=== PATIENT | male | born 1960 | race Caucasian/White ===

== ENCOUNTER → 2019-11-25 16:46 | Outpatient (BNVA) | payer SELFPAY | PROVIDERS: Family Provider Family Medicine; PCP Family Medicine; Visit Provider Family Medicine | DX: I25.10 Atherosclerotic heart disease of native coronary artery without angina pectoris (principal); I10 Essential (primary) hypertension; J44.1 Chronic obstructive pulmonary disease with (acute) exacerbation; Z87.891 Personal history of nicotine dependence; Z78.9 Other specified health status | CPT/HCPCS: 80053; 80061 ==

== ENCOUNTER 2020-03-18 18:50 | Emergency (ER) | payer SELFPAY ==
[2020-03-18 18:56] VITALS: BP 122/73; PULSE 72; RESP 16; TEMP 36.7; O2SAT 95; BMI 35.5
--- NOTE | 2020-03-18 18:56 | XR_ITS ---
WS: [id number] Portable AP upright chest, 03/18/2020 Clinical Data: cp Comparison: Portable chest, 11/15/2018. Findings: No nodules, masses or effusions are seen. The heart is normal. The pulmonary vascularity is not increased. No pneumonia or pneumothorax is seen. Calcified granulomas in both abigail. XR/XR chest 1V portable [id number] Impression: Old granulomatous disease.
--- NOTE | 2020-03-18 18:56 | ECG_ITS ---
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 Measurements Intervals [place] Rate: 73 P: 70 W[place]: 189 QRS: -74 QRSD: 104 T: 78 QT: 360 QTc: 398 Interpretive Statements SINUS RHYTHM LEFT ANTERIOR FASCICULAR BLOCK [QRS AXIS <= -45, QR IN I, RS IN II] WARNING: DATA QUALITY MAY AFFECT INTERPRETATION Compared to ECG 11/15/2018 20:17:41 No significant changes Electronically Signed On 03-20-2020 19:13:05 SIGNAL TOWER OPERATOR by Noé Aguilar M.D. [id number]
[2020-03-18 19:13] VITALS: BP 96/55; PULSE 74; RESP 16; O2SAT 96
[2020-03-18 19:35] LABS: Basophils % 0.5 %; Eosinophils # 0.4 10^3/uL (0.0-0.8); Eosinophils % 5.4 %; Hematocrit 43.9 % (42.0-52.0); Hemoglobin 14.5 g/dL (11.7-16.6); Lymphocytes # 1.4 10^3/uL (0.8-4.8); Mean Corpuscular Hemoglobin 30.2 pg (28.0-34.0); Mean Corpuscular Volume 91.5 fL (80-94); Mean Platelet Volume 9.1 fL (7.4-10.4); Monocytes # 0.9 10^3/uL (0.2-0.9); Monocytes % 10.8 %; Neutrophils % 64.9 %; Nucleated Red Blood Cells % 0 %; Platelet Count 292 10^3/cmm (130-400); Red Cell Distribution Width 12.3 % (12.1-15.1)
[2020-03-18 19:36] VITALS: BP 109/61; PULSE 75; RESP 18; O2SAT 97
[2020-03-18 19:51] LABS: Alanine Aminotransferase 15 U/L (0-41); Albumin Level 4.1 g/dL (3.5-5.2); Alkaline Phosphatase 69 IU/L (40-130); Anion Gap 13.3 (5-19); Aspartate Amino Transferase 11 U/L (0-40); Blood Urea Nitrogen 11 mg/dL (8-23); Calcium 8.6 mg/dL (8.5-10.5); Carbon Dioxide 26 mmol/L (22-29); Chloride 99 mmol/L (98-107); Globulin 2.5 g/dL (1.3-4.6); Glomerular Filtration Rate 98.3 mL/min (90-130); Glucose 103 mg/dL (65-115); Osmolality Calculated 278 mOsm/kg (285-295); Potassium 4.3 mmol/L (3.5-5.1); Sodium 134 mmol/L (136-145); Total Bilirubin 0.2 mg/dL (0.15-1.2); Total Protein 6.6 g/dL (6.6-8.7)
[2020-03-18 19:53] LABS: Troponin(5th) Baseline 8 ng/L (0-15)
--- NOTE | 2020-03-18 19:53 | W.ED.CHESTPA ---
HPI - Chest Pain General: Chief Complaint: Chest Pain Stated Complaint: CHEST PAIN/POSS BLOCKAGE Time Seen by Provider: 03/18/20 19:23 Source: patient Mode of arrival: ambulatory Limitations: no limitations History of Present Illness: HPI narrative: 59-year-old male states he been having left-sided chest pain that started roughly 3 hours ago. He states that it is a pain in the left chest is a sharp dull pain. Denies any radiation. Denies any nausea or shortness of breath. Patient denies any worsening or improving factors. He has an extensive cardiac history and had multiple stents in the past. States pain is currently a 2 out of 10. MD complaint: chest pain Associated symptoms: Deny abdominal pain, dyspnea, fever(s), nausea or vomiting Review of Systems Const: Denies: fever(s), chills, body aches or change in appetite Eyes: Denies: blurry vision or eye discomfort ENMT: Denies: throat pain or dental pain Card: Reports: chest pain Resp: Denies: dyspnea GI: Denies: abdominal pain, nausea, vomiting or diarrhea : Denies: dysuria Musc: Denies: neck pain or back pain Skin/Breast: Denies: rash Neuro: Denies: headache(s) Psych: Denies: depression Everette/Lymph: Denies: easy bruising All/Imm: Denies: urticaria PFSH ED PFSH: Medical History (Updated 03/18/20 @ 21:47 by Js Hdez MD) CAD (coronary atherosclerotic disease) COPD (chronic obstructive pulmonary disease) GERD (gastroesophageal reflux disease) Hypertension Surgical History H/O angioplasty Social History Smoking and tobacco status: former smoker Quit status (tobacco): has quit using tobacco Year quit tobacco: 2009 Second hand smoke exposure: No Alcohol intake: current Alcohol intake frequency: holidays/special occasions only Desire information about substance/drug rehabilitation?: No Current occupational status: employed History of recent travel: No Current gender identity: Male Physical Exam Const: COMMON NORMALS: no acute distress, patient oriented x3 and healthy appearing HENMT: COMMON NORMALS: normocephalic and atraumatic HEAD & SCALP: normocephalic and atraumatic Eye: COMMON NORMALS: Equal, round and reactive pupils present and EOMs intact bilaterally PUPIL: Yes Equal, round and reactive pupils present Neck/C-Spine: COMMON NORMALS: full ROM and supple Chest: COMMONS NORMALS: normal inspection of the chest and normal palpation of entire chest wall Resp: COMMON NORMALS: normal respiratory effort, No retractions, No use of accessory muscles and clear to auscultation bilaterally AUSCULTATION: clear to auscultation bilaterally Cardio: COMMON NORMALS: regular rate, regular rhythm and No murmurs present (Cardio) RATE: regular rate RHYTHM: regular rhythm GI: COMMON NORMALS: Normal to inspection, nondistended, normoactive bowel sounds present, Soft to palpation, non-tender and no masses PALPATION: Yes Soft to palpation Extremity: COMMON NORMALS: normal to inspection and full ROM Neuro: COMMON NORMALS: patient oriented x3, moves all extremities and no focal motor deficits Psych: COMMON NORMALS: mental status grossly normal, Normal thought process present and cooperative THOUGHT PROCESS: Normal thought process present Skin: COMMON NORMALS: no rashes or lesions noted and no wounds GENERAL SKIN EXAM: no rashes or lesions noted Course Vital Signs: Vital signs: Vital Signs Temperature 98.0 F 03/18/20 18:56 Pulse Rate 75 03/18/20 19:36 Respiratory Rate 16 03/18/20 20:02 Blood Pressure 109/61 03/18/20 19:36 Pulse Oximetry 97 03/18/20 19:36 MDM - Chest Pain MDM Narrative: Medical decision making narrative: Matt presents here with chest pain is atypical in nature. Its been resolved here is initial repeat troponin are negative. Patient is stable for discharge and no signs of acute coronary syndrome. He has no signs of pulmonary [place] or aortic dissection. He is to follow-up his maternal fetal physician in 2 to 4 days return to the ER if worsening. He understands and agrees to the plan. Lab Data: Labs: Lab Results 03/18/20 03/18/20 03/18/20 Range/Units 19:25 19:25 19:25 WBC 8.0 (4.0-10.0) 10^3/ uL RBC 4.80 (4.1-5.3) 10^6/u L Hgb 14.5 (11.7-16.6) g/dL Hct 43.9 (42.0-52.0) % MCV 91.5 (80-94) fL MCH 30.2 (28.0-34.0) pg MCHC 33.0 (30.0-36.0) g/dL RDW 12.3 (12.1-15.1) % Plt Count 292 (130-400) 10^3/c mm MPV 9.1 (7.4-10.4) fL Neut % (Auto) 64.9 % Lymph % (Auto) 18.0 % [place] % (Auto) 10.8 % Eos % (Auto) 5.4 % Baso % (Auto) 0.5 % Neut # (Auto) 5.20 (1.8-7.7) 10^3/u L Lymph # (Auto) 1.4 (0.8-4.8) 10^3/u L [place] # (Auto) 0.9 (0.2-0.9) 10^3/u L Eos # (Auto) 0.4 (0.0-0.8) 10^3/u L Baso # (Auto) 0.0 (0.0-0.1) 10^3/u L Nucleated RBC % (a uto) 0 % Nucleated RBCs # 0.0 /100WBC Sodium 134 L (136-145) mmol/L Potassium 4.3 (3.5-5.1) mmol/L Chloride 99 (98-107) mmol/L Carbon Dioxide 26 (22-29) mmol/L Anion Gap 13.3 (5-19) BUN 11 (8-23) mg/dL Creatinine 0.8 (0.7-1.2) mg/dL GFR Calculation 98.3 (90-130) mL/min Glucose 103 (65-115) mg/dL Calculated Osmolal ity 278 L (285-295) mOsm/k g Calcium 8.6 (8.5-10.5) mg/dL Total Bilirubin 0.2 (0.15-1.2) mg/dL AST 11 (0-40) U/L ALT 15 (0-41) U/L Alkaline Phosphata se 69 (40-130) IU/L Troponin T Baselin e 8 (0-15) ng/L Troponin T 120 Min [place] (0-15) ng/L Total Protein 6.6 (6.6-8.7) g/dL Albumin 4.1 (3.5-5.2) g/dL Globulin 2.5 (1.3-4.6) g/dL 03/18/20 Range/Units 21:20 WBC (4.0-10.0) 10^3/ uL RBC (4.1-5.3) 10^6/u L Hgb (11.7-16.6) g/dL Hct (42.0-52.0) % MCV (80-94) fL MCH (28.0-34.0) pg MCHC (30.0-36.0) g/dL RDW (12.1-15.1) % Plt Count (130-400) 10^3/c mm MPV (7.4-10.4) fL Neut % (Auto) % Lymph % (Auto) % [place] % (Auto) % Eos % (Auto) % Baso % (Auto) % Neut # (Auto) (1.8-7.7) 10^3/u L Lymph # (Auto) (0.8-4.8) 10^3/u L [place] # (Auto) (0.2-0.9) 10^3/u L Eos # (Auto) (0.0-0.8) 10^3/u L Baso # (Auto) (0.0-0.1) 10^3/u L Nucleated RBC % (a uto) % Nucleated RBCs # /100WBC Sodium (136-145) mmol/L Potassium (3.5-5.1) mmol/L Chloride (98-107) mmol/L Carbon Dioxide (22-29) mmol/L Anion Gap (5-19) BUN (8-23) mg/dL Creatinine (0.7-1.2) mg/dL GFR Calculation (90-130) mL/min Glucose (65-115) mg/dL Calculated Osmolal ity (285-295) mOsm/k g Calcium (8.5-10.5) mg/dL Total Bilirubin (0.15-1.2) mg/dL AST (0-40) U/L ALT (0-41) U/L Alkaline Phosphata se (40-130) IU/L Troponin T Baselin e (0-15) ng/L Troponin T 120 Min [place] 7.57 (0-15) ng/L Total Protein (6.6-8.7) g/dL Albumin (3.5-5.2) g/dL Globulin (1.3-4.6) g/dL Imaging Data^: CXR: Attestation: I personally reviewed and interpreted this imaging study as follows: My impression: no acute abnormality EKG Data^: EKG 1: Attestation: I personally reviewed and interpreted this EKG as follows: EKG interpretation date: 03/18/20 EKG interpretation time: 18:54 Interpretation: nsr hr [address] or t wave abnormalities qrs 104 qtc 386 EKG 2: Attestation: I personally reviewed and interpreted this EKG as follows: EKG interpretation date: 03/18/20 EKG interpretation time: 21:06 Interpretation: nsr hr [address] or t wave abnormalities qrs 112 qtc 378 Discharge Plan Discharge Patient Disposition: Home Clinical Impression: Chest pain Qualifiers: Chest pain type: unspecified Qualified Code(s): R07.9 - Chest pain, unspecified Condition: Stable Prescriptions: No Action aspirin 81 mg tablet,delayed release (DR/EC) 81 mg PO DAILY RF: 0 lisinopril 10 mg tablet 10 mg PO DAILY 30 Days Qty: 30 RF: 5 isosorbide mononitrate 30 mg tablet extended release 24 hr 30 mg PO QAM 30 Days Qty: 30 RF: 5 doxycycline hyclate 100 mg tablet 100 mg PO BID 5 Days Qty: 10 RF: 0 atorvastatin 10 mg tablet 10 mg PO .at bedtime 30 Days Qty: 30 RF: 5 Discharge Orders: Discharge ED (Routine); Ordered 03/18/20 Ordered By: Js Hdez Referrals: Lisha Lobo DO [Primary Care Provider] - 1-3 days Discharge Diet: Advance as tolerated Discharge Activity: Resume usual activity Patient Instructions: Chest Pain (ED) Coding Level of Care Code ED Gear Machine Operator General for Chg Fwd Exam Comprehensive
[2020-03-18] MEDS: aspirin 81 mg Chew Tablet 324 MG PO (20:01)
[2020-03-18 20:02] VITALS: RESP 16
[2020-03-18] MEDS: morphine 4 mg/mL SDV 1 mL IVP (20:02)
--- NOTE | 2020-03-18 20:56 | ECG_ITS ---
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 Measurements Intervals [place] Rate: 60 P: 86 ME: 200 QRS: -86 QRSD: 112 T: 80 QT: 378 QTc: 378 Interpretive Statements SINUS RHYTHM WITH OCCASIONAL ECTOPIC PREMATURE COMPLEXES LEFT AXIS DEVIATION [QRS AXIS < -30] PATTERN CONSISTENT WITH PULMONARY DISEASE MODERATE INTRAVENTRICULAR CONDUCTION DELAY [110+ ms QRS DURATION] Compared to ECG 11/15/2018 20:17:41 Left-axis deviation now present Intraventricular conduction delay now present Left anterior fascicular block no longer present Electronically Signed On 03-20-2020 19:28:14 INJECTION MACHINE OPERATOR by Noé Aguilar M.D. [id number]
--- NOTE | 2020-03-18 21:10 | PC.NURSE ---
Addendum entered by Annabel Goodson 03/18/20 21:11: EKG done at 0 and shown to ER doctor. Original Note: EKG done at 2100 and shown to ER doctor
[2020-03-18 21:44] LABS: Troponin 5 2HR 7.57 ng/L (0-15)
[2020-03-18 22:01] LABS: Troponin 5 2HR Delta -0.43 ABS# (0-10)
[2020-03-18 22:08] VITALS: BP 118/76; PULSE 72; RESP 16; O2SAT 97
== END 2020-03-18 22:09 | disposition home or self-care (01) ==
PROVIDERS: Emergency Provider Emergency Medicine; PCP Family Medicine
DX: R07.9 Chest pain, unspecified (principal); Z79.82 Long term (current) use of aspirin; Z87.891 Personal history of nicotine dependence; I25.10 Atherosclerotic heart disease of native coronary artery without angina pectoris; I10 Essential (primary) hypertension; J44.9 Chronic obstructive pulmonary disease, unspecified; K21.9 Gastro-esophageal reflux disease without esophagitis
CPT/HCPCS: 71045; 80053; 84484; 85025; 93005; 96374; 99283; J2270

== ENCOUNTER 2020-03-31 08:36 | Emergency (ER) | payer SELFPAY ==
[2020-03-31 08:37] VITALS: BP 144/96; PULSE 70; RESP 18; TEMP 36.8; O2SAT 95; BMI 35.5
--- NOTE | 2020-03-31 08:47 | XR_ITS ---
WS: [id number] Exam: XR chest 1V portable [id number] Date/Time of Exam: 03/31/2020 8:54 AM Reason For Exam: dyspnea/cough Comparison 03/18/2020. Findings: The lungs are clear and fully expanded. Costophrenic angles are sharp. No infiltrates. Bronchovascula r relief appears normal. Cardiac silhouette is unremarkable. Bony elements are intact. XR/XR chest 1V portable [id number] IMPRESSION: Unremarkable chest radiograph.
[2020-03-31 08:48] VITALS: O2SAT 93
--- NOTE | 2020-03-31 08:52 | W.ED.EXTPRO ---
HPI - Extremity Problem General: Chief complaint: Extremity Problem,Nontraumatic Stated complaint: L ARM PAIN Time Seen by Provider: 03/31/20 08:37 History of Present Illness: HPI Narrative: 59-year-old male presents emergency room with complaint of left hand and arm discomfort. 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 It radiates proximally. No history of neck trauma or previous injury to the neck. In addition to this patient is a heavy smoker and has a increasingly productive cough over the last several days. Has several coughing fits while in the exam room. MD Complaint: extremity pain Onset (ago): day(s) Pain Consistency: constant Location: left Quality: sharp Radiation: proximal Relieving factors: rest Exacerbating factors: range of motion Associated symptoms: Reports short of breath; Deny arthralgias, chest pain, fever(s), myalgias or rash Review of Systems Const: Denies: fever(s) ENMT: Denies: throat pain, ear or mastoid pain, nasal discharge or nasal congestion Card: Denies: chest pain Resp: Denies: dyspnea, productive cough or non-productive cough GI: Denies: abdominal pain, nausea, vomiting, hematemesis, coffee ground emesis, diarrhea, constipation, bloating, hematochezia or melena : Denies: flank pain, dysuria, urinary frequency or urinary urgency Skin/Breast: Denies: rash PFSH ED PFSH: Medical History CAD (coronary atherosclerotic disease) COPD (chronic obstructive pulmonary disease) GERD (gastroesophageal reflux disease) Hypertension Surgical History H/O angioplasty Social History Smoking and tobacco status: former smoker Quit status (tobacco): has quit using tobacco Year quit tobacco: 2009 Second hand smoke exposure: No Alcohol intake: current Alcohol intake frequency: holidays/special occasions only Desire information about substance/drug rehabilitation?: No Current occupational status: employed History of recent travel: No Current gender identity: Male Physical Exam Const: COMMON NORMALS: no acute distress GENERAL APPEARANCE: cooperative and comfortable ORIENTATION/CONSCIOUSNESS: Yes awake, Yes oriented to person, Yes oriented to place and Yes oriented to time HENMT: COMMON NORMALS: normocephalic, atraumatic and hearing grossly normal bilaterally HEAD & SCALP: normocephalic and atraumatic Neck/C-Spine: COMMON NORMALS: no JVD Resp: AUSCULTATION: rhonchi and wheezes Cardio: COMMON NORMALS: no JVD, regular rate, regular rhythm and No murmurs present (Cardio) RATE: regular rate RHYTHM: regular rhythm GI: COMMON NORMALS: Soft to palpation and No hepatosplenomegaly present AUSCULTATION: Yes normoactive bowel sounds PALPATION: Yes Soft to palpation, No Tenderness to palpation present (GI), No Guarding due to palpation present (GI) and Yes No hepatosplenomegaly present Extremity: COMMON NORMALS: normal to inspection, capillary refill normal, no clubbing, cyanosis or edema, no calf tenderness and no pedal edema Neuro: SENSORIUM/ORIENTATION: Yes oriented to person, Yes oriented to place and Yes oriented to time Skin: COMMON NORMALS: no rashes or lesions noted GENERAL SKIN EXAM: no rashes or lesions noted Course Vital Signs: Vital signs: Vital Signs Temperature 98.2 F 03/31/20 08:37 Pulse Rate 74 03/31/20 10:50 Respiratory Rate 20 H 03/31/20 10:50 Blood Pressure 129/61 03/31/20 10:50 Pulse Oximetry 96 03/31/20 10:50 MDM - Extremity (Nontraumatic) MDM Narrative: Medical decision making narrative: With patient use a cock-up splint for his wrist wear it at night in bed should not use his left wrist while at work. Can use anti-inflammatories. I am actually more concerned with his respiratory issues he is a 2 pack-a-day smoker he has very coarse breath sounds we will put him on a round of steroids and albuterol. Reviewing his chart will also call in a course of Levaquin. If not improving recheck with primary care physician. Lab Data: Labs: Lab Results 03/31/20 03/31/20 03/31/20 Range/Units 08:57 08:57 08:57 WBC 8.4 (4.0-10.0) 10^3/ uL RBC 4.80 (4.1-5.3) 10^6/u L Hgb 14.5 (11.7-16.6) g/dL Hct 44.0 (42.0-52.0) % MCV 91.7 (80-94) fL MCH 30.2 (28.0-34.0) pg MCHC 33.0 (30.0-36.0) g/dL RDW 12.4 (12.1-15.1) % Plt Count 289 (130-400) 10^3/c mm MPV 8.9 (7.4-10.4) fL Neut % (Auto) 69.6 % Lymph % (Auto) 14.1 % [place] % (Auto) 11.1 % Eos % (Auto) 4.1 % Baso % (Auto) 0.6 % Neut # (Auto) 5.83 (1.8-7.7) 10^3/u L Lymph # (Auto) 1.2 (0.8-4.8) 10^3/u L [place] # (Auto) 0.9 (0.2-0.9) 10^3/u L Eos # (Auto) 0.3 (0.0-0.8) 10^3/u L Baso # (Auto) 0.1 (0.0-0.1) 10^3/u L Nucleated RBC % (a uto) 0 % Nucleated RBCs # 0.0 /100WBC Sodium 131 L (136-145) mmol/L Potassium 4.2 (3.5-5.1) mmol/L Chloride 97 L (98-107) mmol/L Carbon Dioxide 26 (22-29) mmol/L Anion Gap 12.2 (5-19) BUN 15 (8-23) mg/dL Creatinine 0.7 (0.7-1.2) mg/dL GFR Calculation 114.6 (90-130) mL/min Glucose 126 H (65-115) mg/dL Calculated Osmolal ity 274 L (285-295) mOsm/k g Calcium 9.0 (8.5-10.5) mg/dL Total Bilirubin 0.5 (0.15-1.2) mg/dL AST 22 (0-40) U/L ALT 18 (0-41) U/L Alkaline Phosphata se 76 (40-130) IU/L Total Protein 6.9 (6.6-8.7) g/dL Albumin 4.0 (3.5-5.2) g/dL Globulin 2.9 (1.3-4.6) g/dL SARS-CoV-2 Ag (Rap id) Negative (Negative) Discharge Plan Discharge Patient Disposition: Home Clinical Impression: Carpal tunnel syndrome of left wrist, COPD (chronic obstructive pulmonary disease) with acute bronchitis Condition: Stable Prescriptions: New Medrol (Aime) 4 mg tablets,dose pack See Rx Instructions .ROUTE .COMPLEX Qty: 21 RF: 0 albuterol sulfate 90 mcg/actuation HFA aerosol inhaler 2 inh INHALATION Q4H PRN (Reason: shortness of breath or wheezing) Qty: 18 RF: 0 diclofenac sodium 75 mg tablet,delayed release (DR/EC) 75 mg PO Q12H PRN (Reason: pain) Qty: 20 RF: 0 levofloxacin 500 mg tablet 500 mg PO DAILY 7 Days RF: 0 No Action aspirin 81 mg tablet,delayed release (DR/EC) 81 mg PO DAILY RF: 0 lisinopril 10 mg tablet 10 mg PO DAILY 30 Days Qty: 30 RF: 5 isosorbide mononitrate 30 mg tablet extended release 24 hr 30 mg PO QAM 30 Days Qty: 30 RF: 5 doxycycline hyclate 100 mg tablet 100 mg PO BID 5 Days Qty: 10 RF: 0 atorvastatin 10 mg tablet 10 mg PO .at bedtime 30 Days Qty: 30 RF: 5 Discharge Orders: Discharge ED (Routine); Ordered 03/31/20 Ordered By: Diomedes Fitzgerald Referrals: Lisha Lobo DO [Primary Care Provider] - Discharge Diet: Usual diet Discharge Activity: Increase activity as tolerated Patient Instructions: Opioid Safety Activity Restrictions/Additional Instructions: Tested for COVID-19. Maintain self quarantine until results results arrive. He also given steroids and albuterol inhaler to use as needed follow-up with your primary caregiver in 1 week sooner if you have worsening or change of symptoms. Also recommend that you follow-up with your primary caregiver concerning your wrist discomfort suspect that his carpal tunnel use a wrist splint at night if not improving follow-up with your PCP for further evaluation. Coding Level of Care Code ED Hook And Eye Attacher for [place] Fwd Exam Comprehensive
--- NOTE | 2020-03-31 08:56 | CT_ITS ---
WS: [id number] CT HEAD TECHNIQUE: Noncontrast CT of the head obtained from the skullbase to the vertex. CLINICAL INFORMATION: L arm weakness COMPARISON: October 02, 2015 DLP: 766.[address] scans at [facility] use at least one of these dose optimization techniques: automat ed exposure control; mA and/or kV adjustment per patient size (includes targeted exams where dose is matched to clinical indication); or iterative reconstruction. FINDINGS: No evidence of intracranial hemorrhage or mass effect. Ventricular system and basal cisterns are riggins nt. Mild small vessel changes with mild parenchymal volume loss. No extra-axial fluid collections. No evidence of mass or mass effect. Normal echeverria-white differentiation. Mastoid air cells well aerated. Mild mucosal thickening in the ethmoid air cells. Normal visualized s oft tissues. CT/CT head wo con* [id number] IMPRESSION: 1. No evidence of intracranial hemorrhage or mass effect. 2. Mild small vessel changes with mild parenchymal volume loss. 3. No acute intracranial findings. Notified Diomedes Fitzgerald DO at 03/31/2020 9:59 AM.
[2020-03-31 09:05] LABS: Basophils # 0.1 10^3/uL (0.0-0.1); Basophils % 0.6 %; Eosinophils # 0.3 10^3/uL (0.0-0.8); Eosinophils % 4.1 %; Hemoglobin 14.5 g/dL (11.7-16.6); Lymphocytes # 1.2 10^3/uL (0.8-4.8); Lymphocytes % 14.1 %; Mean Corpuscular Hemoglobin 30.2 pg (28.0-34.0); Mean Corpuscular Volume 91.7 fL (80-94); Mean Platelet Volume 8.9 fL (7.4-10.4); Monocytes # 0.9 10^3/uL (0.2-0.9); Monocytes % 11.1 %; Neutrophils # 5.83 10^3/uL (1.8-7.7); Neutrophils % 69.6 %; Nucleated Red Blood Cells % 0 %; Platelet Count 289 10^3/cmm (130-400); Red Cell Distribution Width 12.4 % (12.1-15.1); White Blood Count 8.4 10^3/uL (4.0-10.0)
[2020-03-31 09:34] LABS: Alanine Aminotransferase 18 U/L (0-41); Alkaline Phosphatase 76 IU/L (40-130); Anion Gap 12.2 (5-19); Aspartate Amino Transferase 22 U/L (0-40); Blood Urea Nitrogen 15 mg/dL (8-23); Carbon Dioxide 26 mmol/L (22-29); Chloride 97 mmol/L (98-107); Creatinine Clr Calc Pharmacy 122.5691; Globulin 2.9 g/dL (1.3-4.6); Glomerular Filtration Rate 114.6 mL/min (90-130); Glucose 126 mg/dL (65-115); Osmolality Calculated 274 mOsm/kg (285-295); Potassium 4.2 mmol/L (3.5-5.1); Sodium 131 mmol/L (136-145); Total Bilirubin 0.5 mg/dL (0.15-1.2); Total Protein 6.9 g/dL (6.6-8.7)
[2020-03-31 10:00] LABS: SARS Covid-2 Antigen Negative (Negative)
[2020-03-31 10:50] VITALS: BP 129/61; PULSE 74; RESP 20; O2SAT 96
--- NOTE | 2020-03-31 13:17 | PC.NURSE ---
Prescription for Levaquin 500mg PO daily for 7 days called [facility] in [facility] per pt request.
[2020-04-01 20:18] LABS: Coronavirus Test Green County Not Detected
--- NOTE | 2020-04-02 08:14 | PC.NURSE ---
attempted contact with pt to give COVID results and no answer
== END 2020-03-31 10:50 | disposition home or self-care (01) ==
PROVIDERS: Emergency Provider Family Medicine; PCP Family Medicine
DX: G56.02 Carpal tunnel syndrome, left upper limb (principal); J44.0 Chronic obstructive pulmonary disease with (acute) lower respiratory infection; Z79.82 Long term (current) use of aspirin; I25.10 Atherosclerotic heart disease of native coronary artery without angina pectoris; I10 Essential (primary) hypertension; Z87.891 Personal history of nicotine dependence
CPT/HCPCS: 70450; 71045; 80053; 85025; 87426; 87635; 99283

== ENCOUNTER → 2020-08-06 17:13 | Outpatient (BNVA) | payer SELFPAY | PROVIDERS: PCP Family Medicine; Visit Provider Emergency Medicine | DX: I10 Essential (primary) hypertension (principal); I25.10 Atherosclerotic heart disease of native coronary artery without angina pectoris; L03.114 Cellulitis of left upper limb | CPT/HCPCS: 80048; 80061 ==

== ENCOUNTER → 2022-01-19 08:54 | Outpatient (BNVA) | payer BC, MEDICAID, SELFPAY | PROVIDERS: PCP Family Medicine; Visit Provider Family Medicine | DX: I10 Essential (primary) hypertension (principal); I25.10 Atherosclerotic heart disease of native coronary artery without angina pectoris; J44.9 Chronic obstructive pulmonary disease, unspecified; J44.1 Chronic obstructive pulmonary disease with (acute) exacerbation; L21.9 Seborrheic dermatitis, unspecified | CPT/HCPCS: 80053; 80061; 85025 ==

== ENCOUNTER 2022-07-27 07:37 | Outpatient (CLI) | payer BC, MEDICAID, SELFPAY ==
[2022-07-27] MEDS: perflutren protein-a microsphr 0.22 mg/mL SDV 3 mL IV (08:36)
--- NOTE | 2022-07-27 10:45 | USCV_ITS ---
Matt Espinal Age: 61 Gender: M : 1960 Exam Date: 07/27/2022 08:04 Ordering Phys: Eleanor Reagan MD ([email or web address]) Technologist: Kristian Sal Exam Location: [facility] – [place] Indication: chest pain BP: 130 / 83 HR: 59 Rhythm: Sinus Technical Quality: Adequate MEASUREMENTS (Male / Female) Normal Values 2D ECHO LV Diastolic Diameter PLAX 2.9 cm 4.2 - 5.9 / 3.9 - 5.3 cm LV Systolic Diameter PLAX 2.2 cm IVS Diastolic Thickness 1.2 cm 0.6 - 1.0 / 0.6 - 0.9 cm IVS Systolic Thickness 1.5 cm LVPW Diastolic Thickness 1.3 cm 0.6 - 1.0 / 0.6 - 0.9 cm LVPW Systolic Thickness 1.7 cm LVOT Diameter 2.1 cm LV Ejection Fraction 2D Teich 41.2 % LV Ejection Fraction MOD 2C 64.3 % LV Ejection Fraction 2C AL 65.4 % LA Diameter 3.8 cm M-MODE Aortic Annulus Diameter 3.4 cm LA Ao Ratio MM 1.1 MV E Point Septal Separation 1.2 cm DOPPLER AV Peak Velocity 121.0 cm/s MV Area PHT 3.7 cm squared Mitral E to A Ratio 1.0 MV E' Velocity 51.0 cm/s Mitral E to MV E' Ratio 10.0 Mitral E to LV E' Lateral Ratio 9.9 Mitral E to LV E' Septal Ratio 10.2 FINDINGS Left Ventricle Normal left ventricular cavity size. Normal left ventricular systolic function. No regional wall motion abnormalities. Left ventricular ejection fraction is estimated at 60 %. Normal diastolic function. Right Ventricle Normal right ventricular size and systolic function. Right Atrium Normal right atrial size. Left Atrium Normal left atrial size. Mitral Valve Structurally normal mitral valve. No mitral valve stenosis. No mitral valve regurgitation. Aortic Valve Aortic valve not well visualized. No aortic valve stenosis. No aortic valve regurgitation. Tricuspid Valve Structurally normal tricuspid valve. Trace tricuspid valve regurgitation. Pulmonic Valve Pulmonic valve not well visualized. Pericardium No pericardial effusion. Aorta Normal size aortic root. IVC Inferior vena cava not visualized. CONCLUSIONS 1. This is a technically difficult study. Optison was used per protocol. 2. Normal left ventricular cavity size and systolic function. No regional wall motion abnormalities. Left ventricular ejection fraction is estimated at 60 %. Normal diastolic function. 3. No prior similar studies to compare. Eleanor Reagan MD (Electronically Signed) Final Date: 01 August 2022 17:18 S
== END 2022-07-27 07:38 | disposition home or self-care (01) ==
LOC: RAD 07:37
PROVIDERS: PCP Family Medicine; Visit Provider Internal Medicine Cardiovascular Disease
DX: R06.02 Shortness of breath (principal); I25.10 Atherosclerotic heart disease of native coronary artery without angina pectoris
CPT/HCPCS: C8929; Q9956

== ENCOUNTER 2022-07-27 08:36 | Emergency (ER) | payer BC, MEDICAID, SELFPAY ==
[2022-07-27 08:41] VITALS: BP 121/63; PULSE 69; RESP 18; TEMP 36.9; O2SAT 94; BMI 35.5
[2022-07-27 08:44] VITALS: BP 121/63; PULSE 69; RESP 18; O2SAT 94
--- NOTE | 2022-07-27 08:45 | ED_ITS ---
HPI - URI/Sore Throat General: Chief Complaint: Upper Respiratory Infection Stated Complaint: cough Time Seen by Provider: 07/27/22 08:38 Source: patient and family () Mode of arrival: ambulatory Limitations: no limitations History of Present Illness: Patient is a nice 61-year-old male who presents to ED today along with his for evaluation of a cough over the past 2 weeks. Patient states his cough is productive with green phlegm. He does have some mild nasal congestion as well. He states he has a history of COPD. He is a former smoker with a quit date of approximately a year ago. Patient states he does not feel short of breath. He is not having any chest pain or discomforts. No fevers. Denies palpitations, lightheadedness/dizziness. Denies lower extremity swelling. No sick contacts. MD elicited complaint: cough Pertinent past history: COPD Onset (ago): week(s) Consistency: constant Severity: moderate Description of mucous: green Able to tolerate fluids by mouth: Yes Exacerbating factors: nothing Relieving factors: nothing Associated symptoms: Reports no associated symptoms; Deny abdominal pain, chills, chest pain, diarrhea, fever(s), headache(s), nausea or vomiting Treatments prior to arrival: none Review of Systems Const: Denies: fever(s), chills, body aches, fatigue or malaise Eyes: Denies: change in vision or blurry vision Card: Denies: chest pain, palpitations, irregular heart rhythm, edema, swelling of feet/ankles, lightheadedness, syncope, pre-syncope or dyspnea on exertion Resp: Reports: productive cough, change in phlegm color and chest congestion; Denies: dyspnea, wheezing, pain on inspiration or hemoptysis GI: Denies: abdominal pain, nausea, vomiting, heartburn or diarrhea : Denies: difficulty urinating or dysuria Musc: Denies: neck pain, back pain or joint pain Skin/Breast: Denies: rash Neuro: Denies: headache(s) or dizziness [facility] PFSH: Medical History CAD (coronary atherosclerotic disease) COPD (chronic obstructive pulmonary disease) GERD (gastroesophageal reflux disease) History of VT (myocardial infarction) History of nonmelanoma skin cancer Hypertension Surgical History H/O angioplasty Family History Mother Myocardial infarction Other Hypertension Social History Smoking and tobacco status: former smoker Quit status (tobacco): has quit using tobacco Year quit tobacco: 2009 Second hand smoke exposure: No Alcohol intake: current Alcohol intake frequency: holidays/special occasions only Substance/Drug Use: never Desire information about substance/drug rehabilitation?: No Current occupational status: employed Current gender identity: Male Physical Exam Const: COMMON NORMALS: no acute distress, patient oriented x3, no limitations, alert and well nourished GENERAL APPEARANCE: cooperative NUTRITIONAL APPEARANCE: obese ORIENTATION/CONSCIOUSNESS: Yes awake, Yes oriented to person, Yes oriented to place and Yes oriented to time HENMT: COMMON NORMALS: normocephalic and atraumatic HEAD & SCALP: normocephalic and atraumatic Neck/C-Spine: COMMON NORMALS: no lymphadenopathy, supple and no JVD Chest: COMMONS NORMALS: normal inspection of the chest and normal palpation of entire chest wall Resp: COMMON NORMALS: normal respiratory effort EFFORT & INSPECTION: Yes able to speak in complete sentences AUSCULTATION: crackles Laterality: left Cardio: COMMON NORMALS: no JVD, regular rate and regular rhythm RATE: regular rate RHYTHM: regular rhythm Extremity: COMMON NORMALS: normal to inspection, capillary refill normal, no clubbing, cyanosis or edema, no calf tenderness and no pedal edema GENERAL: Yes normal exam except as noted Neuro: JAMES COMA SCALE: document GCS findings James coma scale eye opening: Spontaneous James coma scale verbal response: Orientated James coma scale motor response: Obey commands James coma scale total score: 15 COMMON NORMALS: patient oriented x3 SENSORIUM/ORIENTATION: Yes alert, Yes oriented to person, Yes oriented to place and Yes oriented to time Skin: COMMON NORMALS: no rashes or lesions noted GENERAL SKIN EXAM: no rashes or lesions noted Course Vital Signs: Vital signs: Vital Signs Temperature 98.5 F 07/27/22 08:41 Pulse Rate 69 07/27/22 08:44 Respiratory Rate 18 07/27/22 08:44 Blood Pressure 121/63 07/27/22 08:44 Pulse Oximetry 94 07/27/22 08:44 Oxygen Delivery Me thod Room Air 07/27/22 08:44 MDM - URI/Sore Throat Medical Decision Making Patient appears in no acute distress. His vital signs are stable. Blood work is nonactionable. Not visualize an obvious consolidation on his CXR. At this time patient will be treated for a COPD exacerbation. Patient states he uses albuterol for his COPD. I will place him on Advair and also cover him with Levaquin. Recommend follow-up with his primary care provider early next week. Return ED precautions given. Lab Data 07/27/22 09:02 07/27/22 09:02 Laboratory Results WBC 6.2 10^3/uL (4.0-10.0) 07/27/22 09:02 RBC 4.43 10^6/uL (4.1-5.3) 07/27/22 09:02 Hgb 13.2 g/dL (11.7-16.6) 07/27/22 09:02 Hct 41.4 % (42.0-52.0) L 07/27/22 09:02 MCV 93.5 fl (80-94) 07/27/22 09:02 MCH 29.8 pg (28.0-34.0) 07/27/22 09:02 MCHC 31.9 g/dL (30.0-36.0) 07/27/22 09:02 RDW 12.0 % (12.1-15.1) L 07/27/22 09:02 Plt Count 232 10^3/cmm (130-400) 07/27/22 09:02 MPV 9.4 fL (7.4-10.4) 07/27/22 09:02 Neut % (Auto) 57.1 % 07/27/22 09:02 Lymph % (Auto) 23.8 % 07/27/22 09:02 [place] % (Auto) 11.5 % 07/27/22 09:02 Eos % (Auto) 6.3 % 07/27/22 09:02 Baso % (Auto) 0.8 % 07/27/22 09:02 Neut # (Auto) 3.53 10^3/uL (1.8-7.7) 07/27/22 09:02 Lymph # (Auto) 1.5 10^3/uL (0.8-4.8) 07/27/22 09:02 [place] # (Auto) 0.7 10^3/uL (0.2-0.9) 07/27/22 09:02 Eos # (Auto) 0.4 10^3/uL (0.0-0.8) 07/27/22 09:02 Baso # (Auto) 0.1 10^3/uL (0.0-0.1) 07/27/22 09:02 Nucleated RBC % (auto) 0 % 07/27/22 09:02 Nucleated RBCs # 0.0 /100WBC 07/27/22 09:02 Sodium 135 mmol/L (136-145) L 07/27/22 09:02 Potassium 4.6 mmol/L (3.5-5.1) 07/27/22 09:02 Chloride 101 mmol/L (98-107) 07/27/22 09:02 Carbon Dioxide 25 mmol/L (22-29) 07/27/22 09:02 Anion Gap 13.6 (5-19) 07/27/22 09:02 BUN 13 mg/dL (8-23) 07/27/22 09:02 Creatinine 0.8 mg/dL (0.7-1.2) 07/27/22 09:02 GFR Calculation 97.6 mL/min (90-130) 07/27/22 09:02 Glucose 157 mg/dL (65-115) H 07/27/22 09:02 Calculated Osmolality 283 mOsm/kg (285-295) L 07/27/22 09:02 Calcium 8.8 mg/dL (8.5-10.5) 07/27/22 09:02 Total Bilirubin 0.3 mg/dL (0.15-1.2) 07/27/22 09:02 AST 14 U/L (0-40) 07/27/22 09:02 ALT 21 U/L (0-41) 07/27/22 09:02 Alkaline Phosphatase 73 U/L (40-130) 07/27/22 09:02 Total Protein 7.0 g/dL (6.6-8.7) 07/27/22 09:02 Albumin 4.0 g/dL (3.5-5.2) 07/27/22 09:02 Globulin 3.0 g/dL (1.3-4.6) 07/27/22 09:02 Procalcitonin 0.05 ng/mL (0-0.5) 07/27/22 09:02 Discharge Plan Discharge Patient Disposition: Home Clinical Impression: Acute exacerbation of chronic obstructive pulmonary disease Condition: Stable Prescriptions: New Advair Diskus 250-50 mcg/dose blister with device 1 inh inhalation BID Qty: 60 0RF levofloxacin 500 mg tablet 500 mg PO DAILY 7 Days Qty: 7 0RF No Action ascorbate calcium (vitamin C) 500 mg tablet 500 mg PO DAILY PRN clotrimazole 1 % cream 1 applic topical BID PRN isosorbide mononitrate 30 mg tablet extended release 24 hr 45 mg PO DIRECTED Qty: 135 3RF Rx Instructions: Take 30mg (1 tab) in AM and 15mg (0.5 tab) in PM mupirocin 2 % ointment 1 applic topical BID Qty: 22 0RF lisinopril 20 mg tablet 20 mg PO DAILY 90 Days Qty: 90 3RF Rx Instructions: 340B aspirin 81 mg tablet,delayed release (DR/EC) 81 mg PO DAILY 90 Days Qty: 90 3RF ketoconazole 2 % shampoo 1 applic topical DAILY PRN Rx Instructions: As directed by atorvastatin 10 mg tablet 10 mg PO DAILY Qty: 90 3RF albuterol sulfate 90 mcg/actuation HFA aerosol inhaler 2 inh INHALATION Q4H PRN (Reason: shortness of breath or wheezing) Qty: 18 0RF Discharge Orders: Discharge ED (Routine); Ordered 07/27/22 Ordered By: Tasha Patel Referrals: Estrella Mcintyre MD [Primary Care Provider] - Patient Instructions: COPD (Chronic Obstructive Pulmonary Disease) (DC) Activity Restrictions/Additional Instructions: As we discussed please follow-up with your primary care provider next week for reevaluation. You may return to the emergency department for severe shortness of breath, difficulty breathing, chest pain, fevers, generally feeling worse or unwell, or any other concerns you may have. I hope you begin to feel better soon. Coding Level of Care Code ED Business Info Consultant for Ely Villatoro
--- NOTE | 2022-07-27 08:45 | XR_ITS ---
WS: [id number] EXAMINATION: XR chest 1V portable [id number] REASON FOR EXAM: cough/congestion COMPARISON: 03/31/2020 ORDER DATE: 07/27/2022 8:49 AM TECHNIQUE: A single, portable frontal chest x-ray was obtained. X-RAY FINDINGS: The lungs are clear. Pleural spaces are clear. No pleural effusions or pneumothorax. Cardiomediastinal silhouette is normal. No evidence for pulmonary edema. Soft tissue and osseous structures are unremarkable. No tubes or lines are present. XR/XR chest 1V portable [id number] IMPRESSION: Unremarkable frontal portable chest x-ray.
[2022-07-27 09:11] LABS: Basophils # 0.1 10^3/uL (0.0-0.1); Basophils % 0.8 %; Eosinophils # 0.4 10^3/uL (0.0-0.8); Eosinophils % 6.3 %; Hematocrit 41.4 % (42.0-52.0); Hemoglobin 13.2 g/dL (11.7-16.6); Lymphocytes # 1.5 10^3/uL (0.8-4.8); Lymphocytes % 23.8 %; Mean Corpuscular HGB Conc 31.9 g/dL (30.0-36.0); Mean Corpuscular Hemoglobin 29.8 pg (28.0-34.0); Mean Corpuscular Volume 93.5 fl (80-94); Mean Platelet Volume 9.4 fL (7.4-10.4); Monocytes # 0.7 10^3/uL (0.2-0.9); Monocytes % 11.5 %; Neutrophils # 3.53 10^3/uL (1.8-7.7); Neutrophils % 57.1 %; Nucleated Red Blood Cells % 0 %; Platelet Count 232 10^3/cmm (130-400); Red Blood Count 4.43 10^6/uL (4.1-5.3); White Blood Count 6.2 10^3/uL (4.0-10.0)
[2022-07-27 09:41] LABS: Procalcitonin 0.05 ng/mL (0-0.5)
[2022-07-27 09:52] LABS: Alanine Aminotransferase 21 U/L (0-41); Alkaline Phosphatase 73 U/L (40-130); Anion Gap 13.6 (5-19); Aspartate Amino Transferase 14 U/L (0-40); Blood Urea Nitrogen 13 mg/dL (8-23); Calcium 8.8 mg/dL (8.5-10.5); Carbon Dioxide 25 mmol/L (22-29); Chloride 101 mmol/L (98-107); Creatinine Clr Calc Pharmacy 104.5328; Glomerular Filtration Rate 97.6 mL/min (90-130); Glucose 157 mg/dL (65-115); Osmolality Calculated 283 mOsm/kg (285-295); Potassium 4.6 mmol/L (3.5-5.1); Sodium 135 mmol/L (136-145); Total Bilirubin 0.3 mg/dL (0.15-1.2)
[2022-07-27 10:24] VITALS: BP 124/71; PULSE 68; RESP 16; O2SAT 96
== END 2022-07-27 10:25 | disposition home or self-care (01) ==
PROVIDERS: Emergency Provider Physician Assistant; PCP Family Medicine
DX: J44.1 Chronic obstructive pulmonary disease with (acute) exacerbation (principal); Z79.82 Long term (current) use of aspirin; I25.10 Atherosclerotic heart disease of native coronary artery without angina pectoris; J44.9 Chronic obstructive pulmonary disease, unspecified; I25.2 Old myocardial infarction; Z87.891 Personal history of nicotine dependence
CPT/HCPCS: 36415; 71045; 80053; 84145; 85025; 99284

== ENCOUNTER → 2023-03-05 08:44 | Outpatient (BNVA) | payer BC, MEDICAID, SELFPAY | PROVIDERS: PCP Family Medicine; Visit Provider Family Medicine | DX: J44.1 Chronic obstructive pulmonary disease with (acute) exacerbation (principal); I25.10 Atherosclerotic heart disease of native coronary artery without angina pectoris; I10 Essential (primary) hypertension; Z12.5 Encounter for screening for malignant neoplasm of prostate; J44.9 Chronic obstructive pulmonary disease, unspecified; N52.01 Erectile dysfunction due to arterial insufficiency | CPT/HCPCS: 80053; 80061; 85025; G0103 ==

== ENCOUNTER → 2023-03-12 09:47 | Outpatient (BNVA) | payer BC, MEDICAID, SELFPAY | PROVIDERS: PCP Family Medicine; Visit Provider Family Medicine | DX: J06.9 Acute upper respiratory infection, unspecified (principal); Z13.1 Encounter for screening for diabetes mellitus; J44.1 Chronic obstructive pulmonary disease with (acute) exacerbation; E11.9 Type 2 diabetes mellitus without complications; J98.8 Other specified respiratory disorders; B97.89 Other viral agents as the cause of diseases classified elsewhere | CPT/HCPCS: 83036; 87400; 87426 ==

== ENCOUNTER 2023-05-31 12:52 | Emergency (ER) | payer MEDICARE, MEDICAID, SELFPAY ==
[2023-05-31 12:55] VITALS: BP 107/57; PULSE 82; RESP 17; TEMP 36.6; O2SAT 95; BMI 38.7
[2023-05-31 14:28] VITALS: BP 128/69; PULSE 84; RESP 17; O2SAT 97
[2023-05-31 14:58] LABS: Basophils # 0.1 10^3/uL (0.0-0.1); Basophils % 0.9 %; Eosinophils # 0.3 10^3/uL (0.0-0.8); Hematocrit 43.8 % (37-53); Lymphocytes # 1.5 10^3/uL (0.8-4.8); Lymphocytes % 22.7 %; Mean Corpuscular HGB Conc 32.9 g/dL (30-55); Mean Corpuscular Hemoglobin 30.1 pg (27-33); Mean Corpuscular Volume 91.6 fl (82-101); Mean Platelet Volume 9.6 fL (7.4-10.4); Monocytes # 0.7 10^3/uL (0.2-0.9); Neutrophils # 3.94 10^3/uL (1.8-7.7); Neutrophils % 59.6 %; Nucleated Red Blood Cells % 0 %; Platelet Count 262 10^3/cmm (157-399); Red Blood Count 4.78 10^6/uL (3.85-5.65); Red Cell Distribution Width 12.1 % (12.1-15.1); White Blood Count 6.61 10^3/uL (3.29-11.43)
--- NOTE | 2023-05-31 15:16 | ED_ITS ---
HPI - Abdominal Pain 2 General: Chief Complaint: Abdominal Pain Stated Complaint: left side pains Time Seen by Provider: 05/31/23 15:16 History of Present Illness: 62-year-old male patient comes in today with left abdominal pain for the last 2 weeks. Patient has a history of angioplasty done in 2017, coronary artery disease, hypertension, COPD and asthma. 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 Patient appears morbidly obese. Patient has a very rotund stomach. Patient appears in no pain. Patient appears chronically ill. Patient appears nontoxic. Associated Symptoms: Reports nausea; Denies constipation, diarrhea and vomiting Review of Systems 2 General: Reports: 10 or more systems reviewed and unremarkable except in HPI and below GI: Reports: abdominal pain and nausea; Denies: vomiting, diarrhea or constipation PFSH ED 2 PFSH: Medical History History of IA (myocardial infarction) History of nonmelanoma skin cancer COPD (chronic obstructive pulmonary disease) GERD (gastroesophageal reflux disease) CAD (coronary atherosclerotic disease) Hypertension Surgical History H/O angioplasty Family History Mother Myocardial infarction Other Hypertension Social History Smoking and tobacco/nicotine status: former use of tobacco/nicotine Quit status (tobacco/nicotine): has quit using Year quit tobacco: 2009 Second hand smoke exposure: No Alcohol intake: current Alcohol intake frequency: holidays/special occasions only Substance/Drug Use: never Current occupational status: employed Current gender identity: Male Physical Exam 2 Const: COMMON NORMALS: alert HENMT: COMMON NORMALS: normocephalic HEAD & SCALP: normocephalic Neck/C-Spine: COMMON NORMALS: full ROM Chest: COMMONS NORMALS: normal inspection of the chest Resp: COMMON NORMALS: normal respiratory effort and clear to auscultation bilaterally AUSCULTATION: clear to auscultation bilaterally Cardio: COMMON NORMALS: regular rate and regular rhythm RATE: regular rate RHYTHM: regular rhythm GI: COMMON NORMALS: non-tender Back/Pelvis: COMMON NORMALS: thoracic and lumbar spine normal to inspection Extremity: COMMON NORMALS: no pedal edema Neuro: SENSORIUM/ORIENTATION: Yes alert Skin: COMMON NORMALS: turgor normal GENERAL SKIN EXAM: turgor normal Course 2 Vital Signs: Vital signs: Vital Signs Temperature 97.9 F 05/31/23 12:55 Pulse Rate 82 05/31/23 12:55 Respiratory Rate 17 05/31/23 12:55 Blood Pressure 107/57 05/31/23 12:55 Pulse Oximetry 95 05/31/23 12:55 Oxygen Delivery Me thod Room Air 05/31/23 12:55 MDM - Abdominal Pain Medical Decision Making 62-year-old male patient comes in today with abdominal pain for the last 2 weeks. On exam I note a very rotund stomach. Bowel sounds are normal. Some tenderness is noted in the left lower quadrant of the abdomen. Patient skin color is [place]vl[place]. Vital signs are normal. Differential diagnosis includes not limited to diverticulitis, gastritis, peptic ulcer disease, bowel obstruction, perforation of bowel, colitis. CBC was normal. CMP noted a sodium 130, blood glucose 331, creatinine 1.3, and a lactic 2.6. Believe patient is dehydrated most likely from poorly controlled diabetes. CT of the abdomen noted no acute abnormalities except constipation. Reviewed exam with patient with recommendations for follow-up with primary care, and treatment of constipation with drinking plenty of water and fluids and use of MiraLAX and milk of magnesia. Patient reported understanding agreed to plan. Lab Data 05/31/23 14:47 05/31/23 14:47 Labs/Radiology: Laboratory Results WBC 6.61 10^3/uL (3.29-11.43) 05/31/23 14:47 RBC 4.78 10^6/uL (3.85-5.65) 05/31/23 14:47 Hgb 14.40 g/dL (11.27-16.99) 05/31/23 14:47 Hct 43.8 % (37-53) 05/31/23 14:47 MCV 91.6 fl (82-101) 05/31/23 14:47 MCH 30.1 pg (27-33) 05/31/23 14:47 MCHC 32.9 g/dL (30-55) 05/31/23 14:47 RDW 12.1 % (12.1-15.1) 05/31/23 14:47 Plt Count 262 10^3/cmm (157-399) 05/31/23 14:47 MPV 9.6 fL (7.4-10.4) 05/31/23 14:47 Neut % (Auto) 59.6 % 05/31/23 14:47 Lymph % (Auto) 22.7 % 05/31/23 14:47 [place] % (Auto) 11.0 % 05/31/23 14:47 Eos % (Auto) 5.0 % 05/31/23 14:47 Baso % (Auto) 0.9 % 05/31/23 14:47 Neut # (Auto) 3.94 10^3/uL (1.8-7.7) 05/31/23 14:47 Lymph # (Auto) 1.5 10^3/uL (0.8-4.8) 05/31/23 14:47 [place] # (Auto) 0.7 10^3/uL (0.2-0.9) 05/31/23 14:47 Eos # (Auto) 0.3 10^3/uL (0.0-0.8) 05/31/23 14:47 Baso # (Auto) 0.1 10^3/uL (0.0-0.1) 05/31/23 14:47 Nucleated RBC % (auto) 0 % 05/31/23 14:47 Nucleated RBCs # 0.0 /100WBC 05/31/23 14:47 Sodium 130 mmol/L (136-145) L 05/31/23 14:47 Potassium 4.7 mmol/L (3.5-5.1) 05/31/23 14:47 Chloride 94 mmol/L (98-107) L 05/31/23 14:47 Carbon Dioxide 27 mmol/L (22-29) 05/31/23 14:47 Anion Gap 13.7 (5-19) 05/31/23 14:47 BUN 15 mg/dL (8-23) 05/31/23 14:47 Creatinine 1.3 mg/dL (0.7-1.2) H 05/31/23 14:47 GFR Calculation 55.6 mL/min (90-130) L 05/31/23 14:47 Glucose 331 mg/dL (65-115) H 05/31/23 14:47 Calculated Osmolality 284 mOsm/kg (285-295) L 05/31/23 14:47 Lactic Acid 2.6 mmol/L (0.5-2.2) H 05/31/23 14:47 Calcium 9.0 mg/dL (8.5-10.5) 05/31/23 14:47 Total Bilirubin 0.3 mg/dL (0.15-1.2) 05/31/23 14:47 AST 15 U/L (0-40) 05/31/23 14:47 ALT 25 U/L (0-41) 05/31/23 14:47 Alkaline Phosphatase 92 U/L (40-130) 05/31/23 14:47 C-Reactive Protein 3.0 mg/L (0.0-4.9) 05/31/23 14:47 Total Protein 6.9 g/dL (6.6-8.7) 05/31/23 14:47 Albumin 4.0 g/dL (3.5-5.2) 05/31/23 14:47 Globulin 2.9 g/dL (1.3-4.6) 05/31/23 14:47 Lipase 35 U/L (13-60) 05/31/23 14:47 Urine Color Yellow (Yellow) 05/31/23 15:14 Urine Appearance Clear (CLEAR) 05/31/23 15:14 Urine pH 5 (5-7) 05/31/23 15:14 Ur Specific [place] 1.015 (1.005-1.030) 05/31/23 15:14 Urine Protein Neg (Negative) 05/31/23 15:14 Urine Glucose (UA) 4+ (Normal) H 05/31/23 15:14 Urine Ketones 1+ (Negative) H 05/31/23 15:14 Urine Blood Neg (Negative) 05/31/23 15:14 Urine Nitrate Negative (Negative) 05/31/23 15:14 Urine Bilirubin Neg (Negative) 05/31/23 15:14 Urine Urobilinogen Norm mg/dL (Negative) 05/31/23 15:14 Ur Leukocyte Esterase Negative (Negative) 05/31/23 15:14 Urine RBC None /hpf (0-2) 05/31/23 15:14 Urine WBC None /hpf (0-5) 05/31/23 15:14 Ur Squamous Epith Cells None /hpf (0-5) 05/31/23 15:14 Amorphous Sediment Not Reportable 05/31/23 15:14 Urine Bacteria None /hpf (NONE) 05/31/23 15:14 Urine Mucus None /hpf 05/31/23 15:14 All radiology interpretation(s) finalized by discharge Discharge Plan Discharge Patient Disposition: Home Clinical Impression: Dehydration Abdominal pain Qualifiers: Abdominal location: left upper quadrant Qualified Code(s): R10.12 - Left upper quadrant pain Constipation Qualifiers: Constipation type: unspecified constipation type Qualified Code(s): K59.00 - Constipation, unspecified Condition: Stable Prescriptions: New Miralax 17 gram/dose powder 17 g PO BID PRN (Reason: constipation) Qty: 510 0RF Milk of Magnesia 400 mg/5 mL suspension 30 ml PO BID PRN (Reason: constipation) Qty: 355 0RF No Action ascorbate calcium (vitamin C) 500 mg tablet 500 mg PO DAILY nitroglycerin 0.4 mg tablet, sublingual 0.4 mg sublingual Q5M PRN (Reason: chest pain) Qty: 25 5RF Rx Instructions: do not exceed 3 doses per episode ketoconazole 2 % shampoo 1 applic topical DAILY PRN (Reason: scalp irritation) Rx Instructions: As directed by Dr. Yang Diskus 250-50 mcg/dose blister with device 1 inh inhalation BID Qty: 60 6RF albuterol sulfate 90 mcg/actuation HFA aerosol inhaler 2 inh INHALATION Q4H PRN (Reason: shortness of breath or wheezing) Qty: 18 5RF atorvastatin 10 mg tablet 10 mg PO DAILY Qty: 90 3RF isosorbide mononitrate 30 mg tablet extended release 24 hr 30 mg PO BID Qty: 180 3RF lisinopril 10 mg tablet 10 mg PO DAILY Qty: 90 3RF (DME) Blood Pressure Cuff Misc See Rx Instructions .Route Qty: 1 0RF Rx Instructions: As directed aspirin 81 mg tablet,delayed release (DR/EC) 81 mg PO DAILY 90 Days Qty: 90 3RF Discharge Orders: Discharge ED (Routine); Ordered 05/31/23 Ordered By: Art Coombs Referrals: Estrella Mcintyre MD [Primary Care Provider] - Discharge Diet: Usual diet Discharge Activity: Increase activity as tolerated Patient Instructions: Abdominal Pain (ED) Activity Restrictions/Additional Instructions: Drink plenty of water and fluids. Activity as tolerated. Use MiraLAX 17 g, 1 capful, and 8 ounces up noncarbonated fluid twice a day to maintain soft stool and prevent constipation. Use milk of magnesia 30 mL twice a day as needed for persistent constipation. Make sure you are drinking plenty of water when using these products as it may dehydrate you. Follow-up with primary care for recheck. Return to ED for worsening symptoms such as high fever greater than 100.4, inability to hold fluids down, blood in vomit or stool. Coding Level of Care Code ED Adding Machine Servicer for Ely Villatoro
--- NOTE | 2023-05-31 15:16 | CT_ITS ---
WS: [id number] CT ABDOMEN AND PELVIS WITH CONTRAST HISTORY: abd pain TECHNIQUE: Imaging performed of the abdomen and pelvis with IV contrast. Single phase imaging of the abdomen. Coronal and sagittal reformats are submitted. All CT scans at [facility] use at cate st one of these dose optimization techniques: automated exposure control; mA and/or kV adjustment per patient size (includes targeted exams where dose is matched to clinical indication); or iterative re construction. IV CONTRAST: Omnipaque 350; 100 mL IV. Oral contrast: No DLP: 1186.66 mGy.cm COMPARISON: 02/23/2018 Lower thorax: Lung bases are clear. Heart is normal size. No hiatal hernia. Liver/biliary system: Hepatic cyst RIGHT lobe measures 3.6 x 3.4 cm. No solid mass. No bile duct dila tation. Normal portal vein. Gallbladder: Normal. No gallstones or wall thickening. No pericholecystic fluid. Pancreas: Normal size pancreas and pancreatic duct. No adjacent inflammation. Spleen: Normal size spleen. No mass or infarct. Adrenal glands: Normal. Right kidney: No obstruction. Too small to characterize hypodensities. Left kidney: No obstruction. Cortical cyst 1.0 cm. No obstruction. Aorta: Mild atherosclerosis with no aneurysm. Lymphadenopathy: None. Free fluid: None. GI tract: Stomach is markedly distended with food products. No small bowel obstruction. Moderate diff use constipation. Normal appendix. No diverticulitis. Abdominal wall: Unremarkable abdominal wall. No hernia. Pelvis: No free fluid or adenopathy within the pelvis. Bones: Bilateral L5 pars defects. IMPRESSION: 1. Diffuse moderate constipation. No obstruction. 2. No evidence for acute diverticulitis. 3. No free air or free fluid. 4. No renal obstruction. 5. Stable hepatic cyst. 6. Bilateral L5 pars defects
[2023-05-31 15:20] LABS: Lactic Sepsis W/Reflex 2.6 mmol/L (0.5-2.2)
[2023-05-31 15:21] LABS: Alanine Aminotransferase 25 U/L (0-41); Alkaline Phosphatase 92 U/L (40-130); Anion Gap 13.7 (5-19); Aspartate Amino Transferase 15 U/L (0-40); Blood Urea Nitrogen 15 mg/dL (8-23); Carbon Dioxide 27 mmol/L (22-29); Chloride 94 mmol/L (98-107); Creatinine Clr Calc Pharmacy 66.4389; Globulin 2.9 g/dL (1.3-4.6); Glomerular Filtration Rate 55.6 mL/min (90-130); Glucose 331 mg/dL (65-115); Osmolality Calculated 284 mOsm/kg (285-295); Potassium 4.7 mmol/L (3.5-5.1); Sodium 130 mmol/L (136-145); Total Bilirubin 0.3 mg/dL (0.15-1.2); Total Protein 6.9 g/dL (6.6-8.7)
[2023-05-31 15:35] LABS: Glucose Urine UA 4+ (Normal); Protein Urine Neg (Negative); Specific Gravity, Urine 1.015 (1.005-1.030); Urine Appearance Clear (CLEAR); Urine Color Yellow (Yellow); pH Urine 5 (5-7)
[2023-05-31 15:36] LABS: Bilirubin Urine Neg (Negative); Blood Urine Neg (Negative); Ketones Urine 1+ (Negative); Leukocyte Esterase Urine Negative (Negative); Nitrate Urine Negative (Negative); Urobilinogen Urine Norm (Negative)
[2023-05-31 15:44] LABS: Add Urine Culture? No
[2023-05-31] MEDS: iohexol 350 mg/mL 500 mL Btl (per mL) IV (15:45)
[2023-05-31 15:48] LABS: Lipase 35 U/L (13-60)
[2023-05-31 16:43] LABS: Reflex Lactate Order REFLEX LACTIC ORDERD
[2023-05-31] MEDS: magnesium hydroxide 30 mL UDC PO (16:52)
[2023-05-31 17:01] VITALS: BP 116/65; PULSE 83; RESP 15; O2SAT 97
== END 2023-05-31 17:02 | disposition home or self-care (01) ==
PROVIDERS: Emergency Medicine; Emergency Provider Nurse Practitioner Family; PCP Family Medicine
DX: R10.12 Left upper quadrant pain (principal); E86.0 Dehydration; K59.00 Constipation, unspecified; Z79.82 Long term (current) use of aspirin; Z87.891 Personal history of nicotine dependence; I25.2 Old myocardial infarction; J44.9 Chronic obstructive pulmonary disease, unspecified; I25.10 Atherosclerotic heart disease of native coronary artery without angina pectoris; I10 Essential (primary) hypertension; Z78.9 Other specified health status; R06.02 Shortness of breath; J44.1 Chronic obstructive pulmonary disease with (acute) exacerbation
CPT/HCPCS: 36415; 74177; 80053; 81001; 83605; 83690; 85025; 86140; 99214; 99285; Q9967

== ENCOUNTER → 2023-06-12 09:40 | Outpatient (BNVA) | payer MEDICARE, MEDICAID, SELFPAY | PROVIDERS: PCP Family Medicine; Visit Provider Family Medicine | DX: E11.9 Type 2 diabetes mellitus without complications (principal); I10 Essential (primary) hypertension; J44.1 Chronic obstructive pulmonary disease with (acute) exacerbation; I25.10 Atherosclerotic heart disease of native coronary artery without angina pectoris; E87.1 Hypo-osmolality and hyponatremia; K59.04 Chronic idiopathic constipation; N28.1 Cyst of kidney, acquired; K76.89 Other specified diseases of liver | CPT/HCPCS: 80048; 83036 ==

== ENCOUNTER → 2023-07-11 12:48 | Outpatient (BNVA) | payer MEDICAID, SELFPAY | PROVIDERS: PCP Family Medicine; Visit Provider Nurse Practitioner Family | DX: D48.5 Neoplasm of uncertain behavior of skin (principal); L57.0 Actinic keratosis | CPT/HCPCS: 99214 ==

== ENCOUNTER → 2023-09-03 08:38 | Outpatient (BNVA) | payer MEDICARE, MEDICAID, SELFPAY | PROVIDERS: PCP Family Medicine; Visit Provider Family Medicine | DX: J30.9 Allergic rhinitis, unspecified (principal); E11.9 Type 2 diabetes mellitus without complications; J30.1 Allergic rhinitis due to pollen; J44.1 Chronic obstructive pulmonary disease with (acute) exacerbation; I10 Essential (primary) hypertension; Z68.36 Body mass index [BMI] 36.0-36.9, adult | CPT/HCPCS: 80048; 83036 ==

== ENCOUNTER → 2023-09-19 07:50 | Outpatient (BNVA) | payer MEDICARE, MEDICAID, SELFPAY | PROVIDERS: PCP Family Medicine; Visit Provider Nurse Practitioner Family | DX: D48.5 Neoplasm of uncertain behavior of skin (principal); L57.0 Actinic keratosis; L57.8 Other skin changes due to chronic exposure to nonionizing radiation | CPT/HCPCS: 11102; 17000; 99212 ==

== ENCOUNTER → 2024-01-17 07:49 | Outpatient (BNVA) | payer MEDICARE, MEDICAID, SELFPAY | PROVIDERS: PCP Family Medicine; Visit Provider Dermatology | DX: L21.8 Other seborrheic dermatitis (principal); D23.39 Other benign neoplasm of skin of other parts of face; Z08 Encounter for follow-up examination after completed treatment for malignant neoplasm; Z85.828 Personal history of other malignant neoplasm of skin; C44.329 Squamous cell carcinoma of skin of other parts of face; D48.5 Neoplasm of uncertain behavior of skin; L57.0 Actinic keratosis | CPT/HCPCS: 11102; 13132; 17000; 17311; 99214 ==

== ENCOUNTER → 2024-02-14 08:44 | Outpatient (BNVA) | payer MEDICARE, MEDICAID, SELFPAY | PROVIDERS: PCP Family Medicine; Visit Provider Family Medicine | DX: E11.9 Type 2 diabetes mellitus without complications (principal) | CPT/HCPCS: 80048; 80061; 83036 ==

== ENCOUNTER → 2024-03-11 09:55 | Outpatient (BNVA) | payer MEDICARE, MEDICAID, SELFPAY | PROVIDERS: PCP Family Medicine; Visit Provider Dermatology | DX: L21.8 Other seborrheic dermatitis (principal); Z08 Encounter for follow-up examination after completed treatment for malignant neoplasm; Z85.828 Personal history of other malignant neoplasm of skin; D04.39 Carcinoma in situ of skin of other parts of face | CPT/HCPCS: 17282; 99213 ==

== ENCOUNTER → 2024-03-17 10:48 | Outpatient (BNVA) | payer MEDICARE, MEDICAID, SELFPAY | PROVIDERS: PCP Family Medicine; Visit Provider Internal Medicine Cardiovascular Disease | DX: I10 Essential (primary) hypertension (principal); I25.10 Atherosclerotic heart disease of native coronary artery without angina pectoris; J45.909 Unspecified asthma, uncomplicated; Z87.891 Personal history of nicotine dependence; I25.2 Old myocardial infarction | CPT/HCPCS: 99214 ==

== ENCOUNTER 2024-05-04 11:44 | Emergency (ER) | payer MEDICARE, MEDICAID, SELFPAY ==
[2024-05-04 11:46] VITALS: BP 102/44; PULSE 87; TEMP 36.6; O2SAT 95
--- NOTE | 2024-05-04 13:14 | ECG_ITS ---
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
--- NOTE | 2024-05-04 13:21 | W.ED.SOB ---
HPI - SOB/Dyspnea General: Chief Complaint: Shortness of Breath/Dyspnea Stated Complaint: dr muhammad, blood clot in lung Time Seen by Provider: 05/04/24 13:08 History of Present Illness: HPI Narrative: 63-year-old man with a history of obesity, coronary artery disease, COPD and hypertension who presents emergency room with concerns for chest pain that he had yesterday. He says he gone to [facility] and they had told him he might have a pulmonary embolism and started him on Xarelto. He had not filled the prescription yet. He also was concerned because they told him that it might be on the right chest and he had pain in his left chest and abdomen. So we had not filled the Xarelto. He says that he was told to come here and have a repeat CT to see if he had a pulmonary embolism. He is had no lower extremity swelling. No calf pain. He had had this pain in his chest yesterday that is since gone away. He has had increased cough and is concerned he might have bronchitis. He does have COPD. Related Data Home Medications ?Medication ?Instructions ?Recorded ?Confirmed atorvastatin 10 mg tablet 10 mg PO QAM 05/04/24 05/04/24 isosorbide mononitrate 30 mg 30 mg PO BID 05/04/24 05/04/24 tablet,extended release 24 hr Previous Rx's ?Medication ?Instructions ?Recorded miscellaneous medical supply #1 ea 08/14/22 (Blood Pressure Cuff) nitroglycerin 0.4 mg sublingual 0.4 mg sublingual Q5M PRN chest 05/31/23 tablet pain #25 tabs polyethylene glycol 3350 17 17 g PO BID PRN constipation #510 05/31/23 gram/dose oral powder (Miralax) grams lancets #100 ea 06/12/23 alcohol wipes #1 ea 06/21/23 one touch lancettes #1 ea 06/21/23 blood sugar diagnostic (OneTouch #300 strips 11/14/23 Verio test strips) blood-glucose meter (OneTouch #1 kit 02/08/24 Verio Reflect Meter) albuterol sulfate 90 mcg/actuation 2 inh inhalation Q4H PRN shortness 02/14/24 aerosol inhaler of breath or wheezing #18 grams aspirin 81 mg tablet,delayed 81 mg PO DAILY 90 days #90 tabs 02/14/24 release dextromethorphan polistirex 30 10 ml PO Q12H PRN cough #89 mL 02/14/24 mg/5 mL oral susp ext.release 12hr lisinopril 10 mg tablet 10 mg PO DAILY #90 tabs 02/14/24 mometasone-formoterol HFA 200 2 puff inhalation BID #13 grams 02/14/24 mcg-5 mcg/actuation aerosol inhaler empagliflozin 10 mg tablet 10 mg PO QAM #30 tabs 02/20/24 (Jardiance) glipizide 10 mg tablet, extended 10 mg PO BID 90 days #180 tabs 02/20/24 release 24 hr dexamethasone 6 mg tablet 6 mg PO DAILY 5 days #5 tabs 05/04/24 doxycycline hyclate 100 mg capsule 100 mg PO BID 7 days #14 caps 05/04/24 Allergies Allergy/AdvReac Type Severity Reaction Status Date / Time ampicillin Allergy Unknown unknown Verified 05/04/24 12:01 Penicillins Allergy Unknown Verified 05/04/24 12:01 steroids Allergy ADR/ALGY-Pa Uncoded 05/04/24 12:01 lpitations Review of Systems Narrative: Constitutional symptoms: Negative except as documented in HPI. Skin symptoms: Negative except as documented in HPI. Eye symptoms: Negative except as documented in HPI. ENMT symptoms: Negative except as documented in HPI. Respiratory symptoms: Negative except as documented in HPI. Cardiovascular symptoms: Negative except as documented in HPI. Gastrointestinal symptoms: Negative except as documented in HPI. Genitourinary symptoms: Negative except as documented in HPI. Musculoskeletal symptoms: Negative except as documented in HPI. Neurologic symptoms: Negative except as documented in HPI. Psychiatric symptoms: Negative except as documented in HPI. Endocrine symptoms: Negative except as documented in HPI. PFSH ED PFSH: Medical History History of ND (myocardial infarction) History of nonmelanoma skin cancer COPD (chronic obstructive pulmonary disease) Patient unable to breathe in powder inhalers GERD (gastroesophageal reflux disease) CAD (coronary atherosclerotic disease) Hypertension Surgical History H/O angioplasty Family History Mother Myocardial infarction Other Hypertension Social History Smoking and tobacco/nicotine status: former use of tobacco/nicotine Quit status (tobacco/nicotine): has quit using Year quit tobacco: 2009 Second hand smoke exposure: No Alcohol intake: current Alcohol intake frequency: holidays/special occasions only Substance/Drug Use: never Current occupational status: employed Current gender identity: Male Physical Exam Narrative: EXAM NARRATIVE: General: Alert, no acute distress. Skin: Warm, dry. Head: Normocephalic, atraumatic. Neck: Supple, trachea midline. Eye: Extraocular movements are intact. Ears, nose, mouth and throat: mucosa moist. Cardiovascular: Regular, Normal peripheral perfusion. Respiratory: Lungs are clear to auscultation, respirations are non-labored, breath sounds are equal, Symmetrical chest wall expansion. Gastrointestinal: Soft, Nontender, Non distended Musculoskeletal: Normal ROM, no deformity. Neurological: Alert and oriented, No focal neurological deficit observed. Psychiatric: Cooperative, appropriate mood & affect. Course Vital Signs: Vital signs: Vital Signs Temperature 97.8 F 05/04/24 11:46 Pulse Rate 76 05/04/24 15:00 Respiratory Rate 18 05/04/24 15:00 Blood Pressure 102/65 05/04/24 15:00 Pulse Oximetry 93 05/04/24 15:00 Oxygen Delivery Me thod Room Air 05/04/24 15:00 MDM - SOB/Dyspnea Medical Decision Making Differential diagnosis for patient with chest pain includes but is not limited to and based on the above HPI, review of systems and physical exam: Pneumonia. unstable angina. angina. Acute coronary syndrome / ND. Pulmonary embolism. Costochondritis / musculoskeletal. Pleurisy. Pericarditis. Esophageal spasm. Pancreatis. Cholecystitis. Orders placed to evaluate differential diagnosis based on the above differential, HPI and physical exam EKG: Time 153. Rate 70. Normal sinus rhythm, nonspecific ST changes, no ectopy, normal VT & QRS intervals, This was reviewed and interpreted by myself the ER physician at 1538 Lab Review: Laboratory results were reviewed and interpreted by myself the emergency room physician. No leukocytosis. No anemia. Renal function is slightly above his baseline. He normally runs 0.8-1.3. He is 1.7 today. Fluids are being given for this, a low blood pressure and the fact that he received contrast dye again. Serial cardiac markers are negative. Pain was yesterday. CTA of the chest with PE protocol. No acute infiltrates. No PE. This was reviewed and interpreted by myself the emergency room physician. I also reviewed the radiology report. I reviewed the patient's medical record. Reexamination: Patient remained stable. No increased work of breathing. No altered mental status. No focal motor deficits. Patient will not start the Xarelto prescription. We threw that away. He had a paper prescription. He request treatment for bronchitis. He says he thinks that is what is going on with him. His heart workup is negative. Assessment and plan: Noncardiac chest pain Bronchitis Dehydration Acute renal insufficiency ? IV Decadron, IV normal saline bolus, p.o. doxycycline. In the emergency room. - Discharged home - Discussed plan with patient. Answered any questions. - Evaluation and treatment of this problem were appropriate in the emergency setting. Lab Data 05/04/24 13:38 05/04/24 13:38 Labs/Radiology: Radiology Impressions Chest CTA 05/04/24 14:25 IMPRESSION: 1. No acute infiltrates. 2. No pulmonary embolism. Laboratory Results WBC 6.68 10^3/uL (3.29-11.43) 05/04/24 13:38 RBC 4.95 10^6/uL (3.85-5.65) 05/04/24 13:38 Hgb 14.90 g/dL (11.27-16.99) 05/04/24 13:38 Hct 46.1 % (37-53) 05/04/24 13:38 MCV 93.1 fl (82-101) 05/04/24 13:38 MCH 30.1 pg (27-33) 05/04/24 13:38 MCHC 32.3 g/dL (30-55) 05/04/24 13:38 RDW 12.2 % (12.1-15.1) 05/04/24 13:38 Plt Count 216 10^3/cmm (157-399) 05/04/24 13:38 MPV 9.4 fL (7.4-10.4) 05/04/24 13:38 Neut % (Auto) 61.6 % 05/04/24 13:38 Lymph % (Auto) 17.7 % 05/04/24 13:38 [place] % (Auto) 12.7 % 05/04/24 13:38 Eos % (Auto) 6.7 % 05/04/24 13:38 Baso % (Auto) 0.9 % 05/04/24 13:38 Neut # (Auto) 4.11 10^3/uL (1.8-7.7) 05/04/24 13:38 Lymph # (Auto) 1.2 10^3/uL (0.8-4.8) 05/04/24 13:38 [place] # (Auto) 0.9 10^3/uL (0.2-0.9) 05/04/24 13:38 Eos # (Auto) 0.5 10^3/uL (0.0-0.8) 05/04/24 13:38 Baso # (Auto) 0.1 10^3/uL (0.0-0.1) 05/04/24 13:38 Nucleated RBC % (auto) 0 % 05/04/24 13:38 Nucleated RBCs # 0.0 /100WBC 05/04/24 13:38 Sodium 137 mmol/L (136-145) 05/04/24 13:38 Potassium 5.0 mmol/L (3.5-5.1) 05/04/24 13:38 Chloride 103 mmol/L (98-107) 05/04/24 13:38 Carbon Dioxide 23 mmol/L (22-29) 05/04/24 13:38 Anion Gap 16.0 (5-19) 05/04/24 13:38 BUN 17 mg/dL (8-23) 05/04/24 13:38 Creatinine 1.7 mg/dL (0.7-1.2) H 05/04/24 13:38 GFR Calculation 40.7 mL/min (90-130) L 05/04/24 13:38 Glucose 173 mg/dL (65-115) H 05/04/24 13:38 Calculated Osmolality 290 mOsm/kg (285-295) 05/04/24 13:38 Lactic Acid 2.7 mmol/L (0.5-2.2) H 05/04/24 13:38 Calcium 8.7 mg/dL (8.5-10.5) 05/04/24 13:38 Total Bilirubin 0.3 mg/dL (0.15-1.2) 05/04/24 13:38 AST 14 U/L (0-40) 05/04/24 13:38 ALT 17 U/L (0-41) 05/04/24 13:38 Alkaline Phosphatase 71 U/L (40-130) 05/04/24 13:38 Troponin T Baseline 18 ng/L (0-15) H 05/04/24 13:38 Troponin T 120 Minute 13.40 ng/L (0-15) 05/04/24 15:28 Delta Troponin T -4.60 ABS# (0-10) L 05/04/24 15:28 NT-Pro-B Natriuret Pep < 36 pg/mL (0-125) 05/04/24 13:38 Total Protein 6.7 g/dL (6.6-8.7) 05/04/24 13:38 Albumin 4.2 g/dL (3.5-5.2) 05/04/24 13:38 Globulin 2.5 g/dL (1.3-4.6) 05/04/24 13:38 All radiology interpretation(s) finalized by discharge Discharge Plan Discharge Patient Disposition: Home Clinical Impression: Non-cardiac chest pain, Bronchitis, Dehydration Condition: Stable Prescriptions: New doxycycline hyclate 100 mg capsule 100 mg PO BID 7 Days Qty: 14 0RF dexamethasone 6 mg tablet 6 mg PO DAILY 5 Days Qty: 5 0RF No Action nitroglycerin 0.4 mg tablet, sublingual 0.4 mg sublingual Q5M PRN (Reason: chest pain) Qty: 25 5RF Rx Instructions: do not exceed 3 doses per episode (DME) one touch lancettes See Rx Instructions .Route .MEDSUPPLY Qty: 1 4RF Rx Instructions: As directed (DME) alcohol wipes See Rx Instructions .Route .MEDSUPPLY Qty: 1 4RF Rx Instructions: As directed albuterol sulfate 90 mcg/actuation HFA aerosol inhaler 2 inh INHALATION Q4H PRN (Reason: shortness of breath or wheezing) Qty: 18 5RF aspirin 81 mg tablet,delayed release (DR/EC) 81 mg PO DAILY 90 Days Qty: 90 3RF lisinopril 10 mg tablet 10 mg PO DAILY Qty: 90 3RF mometasone-formoterol 200-5 mcg/actuation HFA aerosol inhaler 2 puff inhalation BID Qty: 13 5RF dextromethorphan polistirex 30 mg/5 mL suspension,extended rel 12 hr 10 ml PO Q12H PRN (Reason: cough) Qty: 89 0RF (DME) lancets Misc See Rx Instructions .ROUTE .MEDSUPPLY Qty: 100 11RF Rx Instructions: For use with glucose meter, brand/type per insurance (DME) Blood Pressure Cuff Misc See Rx Instructions .Route Qty: 1 0RF Rx Instructions: As directed [place] OneTouch Verio test strips Strip See Rx Instructions .ROUTE .COMPLEX Qty: 300 11RF Dose Instruction: Brand/type to go with meter per insurance coverage-USE 3 TIMES A DAY Rx Instructions: Brand/type to go with meter per insurance coverage-USE 3 TIMES A DAY (DME) blood-glucose meter [OneTouch Verio Reflect Meter] Misc See Rx Instructions .ROUTE .COMPLEX Qty: 1 0RF Dose Instruction: Brand/type per insurance coverage Rx Instructions: Brand/type per insurance coverage glipizide 10 mg tablet extended release 24hr 10 mg PO BID 90 Days Qty: 180 2RF Jardiance 10 mg tablet 10 mg PO QAM Qty: 30 3RF polyethylene glycol 3350 [Miralax] 17 gram/dose powder 17 g PO BID PRN (Reason: constipation) Qty: 510 0RF atorvastatin 10 mg tablet 10 mg PO QAM isosorbide mononitrate 30 mg tablet extended release 24 hr 30 mg PO BID Discharge Orders: Discharge ED (Routine); Ordered 05/04/24 Ordered By: Miley Reno Referrals: Estrella Mcintyre MD [Primary Care Provider] - Discharge Diet: Usual diet Discharge Activity: Increase activity as tolerated Patient Instructions: Acute Bronchitis (ED), Noncardiac Chest Pain (ED), Opioid Safety, Pain Management Activity Restrictions/Additional Instructions: Thank you for choosing [facility] for your healthcare needs today. Please realize this is an emergency room and that we are providing you with a medical screening exam and this may not be complete and all inclusive of all the testing and or work up that you may need to determine your ailment or severity of your illness. You have been screened and evaluated and felt safe for discharge. Health conditions do change or evolve sometimes and as such it is important that you follow up with your Primary Doctor to be re checked, 3-5 days is a general good time frame for follow up. You are always welcome to return to the ED for re assessment if your symptoms are worsening or you have new concerns Print Language: Khmer Coding Level of Care Code ED Banking Analyst for Ely Villatoro
[2024-05-04 13:30] VITALS: BP 110/56; PULSE 74; RESP 16; O2SAT 90
[2024-05-04 13:45] LABS: Basophils # 0.1 10^3/uL (0.0-0.1); Basophils % 0.9 %; Eosinophils # 0.5 10^3/uL (0.0-0.8); Eosinophils % 6.7 %; Hematocrit 46.1 % (37-53); Lymphocytes # 1.2 10^3/uL (0.8-4.8); Lymphocytes % 17.7 %; Mean Corpuscular HGB Conc 32.3 g/dL (30-55); Mean Corpuscular Hemoglobin 30.1 pg (27-33); Mean Corpuscular Volume 93.1 fl (82-101); Mean Platelet Volume 9.4 fL (7.4-10.4); Monocytes # 0.9 10^3/uL (0.2-0.9); Monocytes % 12.7 %; Neutrophils # 4.11 10^3/uL (1.8-7.7); Neutrophils % 61.6 %; Nucleated Red Blood Cells % 0 %; Platelet Count 216 10^3/cmm (157-399); Red Blood Count 4.95 10^6/uL (3.85-5.65); Red Cell Distribution Width 12.2 % (12.1-15.1); White Blood Count 6.68 10^3/uL (3.29-11.43)
[2024-05-04 14:00] VITALS: BP 93/49; PULSE 74; RESP 18; O2SAT 94
[2024-05-04 14:05] LABS: Lactic Sepsis W/Reflex 2.7 mmol/L (0.5-2.2); Troponin(5th) Baseline 18 ng/L (0-15)
[2024-05-04 14:14] LABS: Alanine Aminotransferase 17 U/L (0-41); Albumin Level 4.2 g/dL (3.5-5.2); Alkaline Phosphatase 71 U/L (40-130); Aspartate Amino Transferase 14 U/L (0-40); Blood Urea Nitrogen 17 mg/dL (8-23); Calcium 8.7 mg/dL (8.5-10.5); Carbon Dioxide 23 mmol/L (22-29); Chloride 103 mmol/L (98-107); Creatinine Clr Calc Pharmacy 50.1377; Globulin 2.5 g/dL (1.3-4.6); Glomerular Filtration Rate 40.7 mL/min (90-130); Glucose 173 mg/dL (65-115); NT Pro B Type Natriuretic Pept < 36 pg/mL (0-125); Osmolality Calculated 290 mOsm/kg (285-295); Sodium 137 mmol/L (136-145); Total Bilirubin 0.3 mg/dL (0.15-1.2); Total Protein 6.7 g/dL (6.6-8.7)
--- NOTE | 2024-05-04 14:25 | CTR_ITS ---
PROCEDURE INFORMATION: Exam: CTA Chest With Contrast Exam date and time: 05/04/2024 3:08 PM Age: 63 years old Clinical indication: Pain; Shortness of breath; Chest pressure; Additional info: SOB, chest pain, reports pe TECHNIQUE: Imaging protocol: Computed tomographic angiography of the chest with contrast. Exam focused on the arteries. 3D rendering (Not supervised by radiologist): MIP and/or 3D reconstructed images were created by the technologist. Radiation optimization: All CT scans at this facility use at least one of these dose optimization techniques: automated exposure control; mA and/or kV adjustment per patient size (includes targeted exams where dose is matched to clinical indication); or iterative reconstruction. Contrast material: OMNIPAQUE 350; Contrast volume: 80 ml; Contrast route: INTRAVENOUS (IV); COMPARISON: CT chest reganpel w/*[id number] 02/23/2018 1:24 PM RADIATION DOSE METRICS: Total DLP (mGy-cm): 478.47 FINDINGS: Pulmonary arteries: Normal. No pulmonary emboli. Aorta: Unremarkable. No aortic aneurysm. No aortic dissection. Lungs: Calcified left lung granulomas. There is no evidence of focal pulmonary consolidation. Pleural spaces: Unremarkable. No pneumothorax. No pleural effusion. Heart: Unremarkable. No cardiomegaly. No pericardial effusion. Lymph nodes: Unremarkable. No enlarged lymph nodes. Liver: Hypodense lesion in segment 6 of the liver measuring 3.5 cm. Stomach: Over distended stomach. Bones/joints: There are diffuse enthesopathic changes consistent with benign diffuse idiopathic skeletal hyperostosis (DISH). Soft tissues: Unremarkable. CT/CT angio chest PE protcl [id number] IMPRESSION: 1. No acute infiltrates. 2. No pulmonary embolism.
[2024-05-04 15:00] VITALS: BP 102/65; PULSE 76; RESP 18; O2SAT 93
[2024-05-04] MEDS: iohexol 350 mg/mL 500 mL Btl (per mL) IV (15:11)
[2024-05-04] MEDS: sodium chloride 0.9% 1,000 ML 999 ML IV (15:27)
[2024-05-04 15:30] LABS: Reflex Lactate Order REFLEX LACTIC ORDERD
--- NOTE | 2024-05-04 15:33 | ECG_ITS ---
[facility] Date: 2024-05-04 Pat Name: Matt Espinal Department: Room: Gender: Male Director Of Creative Services: : 1960 Requested By: Miley Hines Order Number: [id number] Reading MD: Measurements Intervals [place] Rate: 70 P: 68 MI: 206 QRS: -73 QRSD: 126 T: 83 QT: 377 QTc: 408 Interpretive Statements SINUS RHYTHM LEFT ANTERIOR FASCICULAR BLOCK [QRS AXIS <= -45, QR IN I, RS IN II] SEPTAL MYOCARDIAL INFARCTION , PROBABLY OLD [40+ ms Q WAVE IN V1/V2] [email or web address]
[2024-05-04] MEDS: dexamethasone 10 mg/mL INJ IVP (17:04)
[2024-05-04] MEDS: doxycycline 100 mg Tablet PO (17:04)
[2024-05-04 17:13] LABS: Lactic Acid level (Lactate) 1.5 mmol/L (0.5-2.2)
== END 2024-05-04 17:26 | disposition home or self-care (01) ==
PROVIDERS: Emergency Provider Emergency Medicine; PCP Family Medicine
DX: R07.89 Other chest pain (principal); J40 Bronchitis, not specified as acute or chronic; E86.0 Dehydration; Z87.891 Personal history of nicotine dependence; I25.10 Atherosclerotic heart disease of native coronary artery without angina pectoris; J44.9 Chronic obstructive pulmonary disease, unspecified; I10 Essential (primary) hypertension; Z85.828 Personal history of other malignant neoplasm of skin
CPT/HCPCS: 36415; 71275; 80053; 83605; 83880; 84484; 85025; 93005; 96361; 96374; 99285; J1100; J7030; J9999

== ENCOUNTER → 2024-05-29 08:46 | Outpatient (BNVA) | payer MEDICARE, MEDICAID, SELFPAY | PROVIDERS: PCP Family Medicine; Visit Provider Family Medicine | DX: E11.9 Type 2 diabetes mellitus without complications (principal) | CPT/HCPCS: 83036 ==

== ENCOUNTER → 2024-08-11 09:36 | Outpatient (BNVA) | payer MEDICARE, MEDICAID, SELFPAY | PROVIDERS: PCP Family Medicine; Visit Provider Family Medicine | DX: I10 Essential (primary) hypertension (principal); E11.9 Type 2 diabetes mellitus without complications | CPT/HCPCS: 80048; 83036; 83735 ==